=== PATIENT | female | born 1950 | race Caucasian/White ===

== ENCOUNTER 2024-10-17 11:54 | Emergency (ER) | payer OTHER ==
[~2024-10-17] VITALS: Ht 172.7 cm; Wt 99.8 kg
--- NOTE | 2024-10-17 12:35 | ERN ---
General Chief Complaint: Head Injury Stated Complaint: HEAD PAIN DUE TO FALL, BLACK EYE Time Seen by MD: 11:55 Time Seen by Midlevel: 11:55 Source: patient History of Present Illness Initial Comments The patient is a 73-year-old female presenting to the emergency department after sustaining a mechanical ground level fall two days ago. This morning she not iced bruising to her right eye which prompted the ER visit. She states that two days ago she was cooking when she lost her balance and fell onto the right side. She does report hitting her head and is unsure if she lost consciousness. Denies being on any blood thinners. Allergies: Coded Allergies: No Known Allergies (Unverified Allergy, Unknown, 10/17/24) Past Medical History Past Medical History: Anxiety, GERD, High Cholesterol, Other Medical History Other: LYMPHOMA Past Surgical History: BTL ROS Dictation CONSTITUTIONAL: Negative except for HPI HEAD/FACE: Negative except for HPI EENT: Negative except for HPI RESPIRATORY: Negative except for HPI GASTROINTESTINAL/ABDOMINAL: Negative except for HPI GENITOURINARY: Negative except for HPI MUSCULOSKELETAL: Negative except for HPI INTEGUMENTARY: Negative except for HPI NEUROLOGICAL/PSYCH: Negative except for HPI HEMATOLOGIC/LYMPHATIC: Negative except for HPI All Systems Negative, Except as noted above. 13 point review of systems assessed and all negative except for above. Physical Exam Physical Exam Dictation Vital Signs reviewed General Appearance: Alert, oriented x 3, no acute distress, well developed, nourished. Head and Face: Right periorbital bruising, right parietal scalp hematoma Eyes: PERRL, pink conjunctivas, eyelid no trauma, anterior chamber with arcus senilis. Ears: Pinnas intact and no signs of trauma or erythema ear canals clear and no discharge TM no erythema, bruising behind the right ear Nose: No discharge, no bleeding. Oropharynx: Mouth normal, tongue pink, pharynx clear,no erythema, tonsils no exudates, no abscesses noted, mucous membrane moist Neck: Supple, non-tender, no thyromegaly, no masses, no JVD, no bruits Breast:Deferred Chest:No tenderness, no crepitus, no paradoxical movement, no retractions Lungs:Clear, well-ventilated, symmetric, no rales, no wheezing, no rhonchi, no stridor, good breath sounds bilaterally Heart: Regular rate, regular rhythm, no murmur, no gallops Vascular: no peripheral edema, Abdomen: Soft, positive bowel sounds, nondistended, no guarding, nontender, no rebound, no masses no hepatomegaly, no splenomegaly, no Fierro's sign, no hernias. Rectal: Deferred Genital: Deferred Neurological: Normal speech, motor function intact, sensory function intact Musculoskeletal: Neck nontender, full range of motion, back nontender, full range of motion, Extremities: nontender, full range of motion Skin: Color pink, dry, no turgor, no rash, no lacerations, no abrasions, no contusions. Lymphatic: Deferred MDM MDM: Differential diagnosis: There are no social concerns with this patient. Prescription drug management Prescriptions will include: Medical management and examination interpretation discussions were had by me with other qualified healthcare professionals as indicated for the patient's care. ED Course Orders Procedure Category Date Status Time Ct Cervical Spine W/O CT 10/17/24 Resulted Contrast 12:13 Ct Head/Brain W/O CT 10/17/24 Resulted Contrast 12:13 Ct Maxillofacial W/O CT 10/17/24 Resulted Contrast 12:13 Vital Signs Date Time Temp Pulse Resp B/P (MAP) Pulse Ox O2 Delivery O2 Flow Rate FiO2 10/17/24 12:20 98.1 85 16 136/80 98 Room Air* 0 21 10/17/24 12:00 98.2 87 16 138/82 97 Room Air [address] [address] IMAGING REPORT Signed PATIENT: JUSTIN AUGUSTE MR#: [id number] : 1950 SEX: F AGE: 73 LOCATION: [facility] ORDER STATUS: REG [facility] REPORT#: [id number] SERVICE 1213 REASON: FALL, RIGHT PARIETAL SCALP HEMATOMA, RIGHT PERIORBITAL HEMATOMA, ORDERING PHYSICIAN: AMANDA TODD PROCEDURE: HEAD WO - CT HEAD/BRAIN W/O CONTRAST CT HEAD/BRAIN W/O CONTRAST HISTORY: Status post fall COMPARISON: None TECHNIQUE: Multiple sequential axial images of the head were obtained from the base of the skull through vertex. Patient was not given contrast through intravenous route. FINDINGS: There is right posterior scalp soft tissue swelling/soft tissue hematoma. The ventricles and extraventricular CSF spaces are dilated consistent with cerebral atrophy. Nonspecific white matter changes seen. There is no midline shift, mass effect or herniation. No acute intracranial bleed is seen. Visualized portion of the paranasal sinuses are grossly within normal limits. IMPRESSION: 1. No acute intracranial bleed is seen. 2. Atrophy with white matter changes. CT was performed with one or more following dose reduction techniques: automated exposure control, adjustment of the mA and kv according to patient's size, or use of a iterative reconstruction technique. DICTATED BY: OMAYRA MCCONNELL MD DATE: 10/17/241302 ELECTRONICALLY SIGNED BY: OMAYRA MCCONNELL MD DATE: 10/17/[address] [address] IMAGING REPORT Signed PATIENT: JUSTIN AUGUSTE MR#: [id number] : 1950 SEX: F AGE: 73 LOCATION: [facility] ORDER 14 STATUS: [facility] REPORT#: [id number] SERVICE 12 REASON: FALL, RIGHT PARIETAL SCALP HEMATOMA, RIGHT PERIORBITAL HEMATOMA, ORDERING PHYSICIAN: AMANDA TODD PROCEDURE: C SPIN WO - CT CERVICAL SPINE W/O CONTRAST CT CERVICAL SPINE W/O CONTRAST HISTORY: Status post fall COMPARISON: None TECHNIQUE: Multiple sequential axial images of the cervical spine were obtained including post processing sagittal and coronal reconstruction images. Patient was not given contrast through intravenous route. FINDINGS: There are degenerative changes in cervical spine spondylosis. Disc space narrowings are seen at C3-4, C4-5, C5-6 and C6-7 levels. There is reversal of normal lordotic cervical curvature which may be related to muscle spasm or positioning. There is no loss of vertebral height. Evaluation for disc and cord pathology is limited with CT study. No evidence of fracture or dislocation is seen. IMPRESSION: 1. No fracture is seen. CT was performed with one or more following dose reduction techniques: automated exposure control, adjustment of the mA and kv according to patient's size, or use of a iterative reconstruction technique. DICTATED BY: OMAYRA MCCONNELL MD DATE: 03/08/25 1307 ELECTRONICALLY SIGNED BY: OMAYRA MCCONNELL MD DATE: 10/17/24 131 [place] [address] [place] [id number] IMAGING REPORT Signed PATIENT: JUSTIN AUGUSTE MR#: [id number] : 1950 SEX: F AGE: 73 LOCATION: [facility] ORDER 121 STATUS: REG [facility] REPORT#: [id number] SERVICE 12 REASON: FALL, RIGHT PARIETAL SCALP HEMATOMA, RIGHT PERIORBITAL HEMATOMA, ORDERING PHYSICIAN: AMANDA TODD PROCEDURE: MAXFACI WO - CT MAXILLOFACIAL W/O CONTRAST CT MAXILLOFACIAL W/O CONTRAST HISTORY: Status post fall COMPARISON: None TECHNIQUE: Multiple sequential high-resolution axial images of the paranasal sinuses were obtained. Postprocessing sagittal and coronal reconstruction images were also obtained. Patient was not given contrast through intravenous route. FINDINGS: Nasal septum is mildly deviated towards right. There is no evidence of mucoperiosteal thickening involving the paranasal sinuses. The infundibula are patent bilaterally. No acute displaced fracture is seen. There is no evidence of air-fluid level in the paranasal sinuses. Parapharyngeal fat planes are preserved bilaterally. IMPRESSION: 1. No acute displaced fracture is seen. CT was performed with one or more following dose reduction techniques: automated exposure control, adjustment of the mA and kv according to patient's size, or use of a iterative reconstruction technique. DICTATED BY: OMAYRA MCCONNELL MD DATE: 10/17/241310 ELECTRONICALLY SIGNED BY: OMAYRA MCCONNELL MD DATE: 10/17/24 131 DX & DISP Disposition: Discharge Departure Impression: Primary Impression: Hematoma of right parietal scalp Additional Impression: Closed head injury Condition: Stable Additional Instructions: Your CT scan of the head does not show any acute intracranial bleed. Your CT scan of the neck and maxillofacial does not show any acute fracture or dislocation. You may take Tylenol and Motrin as needed for pain. The bruising should go away over the next couple of days. Follow up with your primary care doctor in 2-3 days for repeat evaluation. Return to the ER if you develop any new or worsening symptoms Referrals: NONE (PCP) Time of Disposition: 13:18 I have reviewed the case, and I agree with, Diagnosis and Plan I performed the substantive portion of the visit. I have reviewed and personally made and approve the management plan that is documented in the note by myself or the SANJAY. I acknowledge for responsibility for the patient's management plan. AMANDA TODD Oct 17, 2024 12:35
--- NOTE | 2024-10-17 13:10 | HMCIMG ---
CT HEAD/BRAIN W/O CONTRAST HISTORY: Status post fall COMPARISON: None TECHNIQUE: Multiple sequential axial images of the head were obtained from the base of the skull through vertex. Patient was not given contrast through intravenous route. FINDINGS: There is right posterior scalp soft tissue swelling/soft tissue hematoma. The ventricles and extraventricular CSF spaces are dilated consistent with cerebral atrophy. Nonspecific white matter changes seen. There is no midline shift, mass effect or herniation. No acute intracranial bleed is seen. Visualized portion of the paranasal sinuses are grossly within normal limits. IMPRESSION: 1. No acute intracranial bleed is seen. 2. Atrophy with white matter changes. CT was performed with one or more following dose reduction techniques: automated exposure control, adjustment of the mA and kv according to patient's size, or use of a iterative reconstruction technique.
--- NOTE | 2024-10-17 13:13 | HMCIMG ---
CT CERVICAL SPINE W/O CONTRAST HISTORY: Status post fall COMPARISON: None TECHNIQUE: Multiple sequential axial images of the cervical spine were obtained including post processing sagittal and coronal reconstruction images. Patient was not given contrast through intravenous route. FINDINGS: There are degenerative changes in cervical spine spondylosis. Disc space narrowings are seen at C3-4, C4-5, C5-6 and C6-7 levels. There is reversal of normal lordotic cervical curvature which may be related to muscle spasm or positioning. There is no loss of vertebral height. Evaluation for disc and cord pathology is limited with CT study. No evidence of fracture or dislocation is seen. IMPRESSION: 1. No fracture is seen. CT was performed with one or more following dose reduction techniques: automated exposure control, adjustment of the mA and kv according to patient's size, or use of a iterative reconstruction technique.
--- NOTE | 2024-10-17 13:14 | HMCIMG ---
CT MAXILLOFACIAL W/O CONTRAST HISTORY: Status post fall COMPARISON: None TECHNIQUE: Multiple sequential high-resolution axial images of the paranasal sinuses were obtained. Postprocessing sagittal and coronal reconstruction images were also obtained. Patient was not given contrast through intravenous route. FINDINGS: Nasal septum is mildly deviated towards right. There is no evidence of mucoperiosteal thickening involving the paranasal sinuses. The infundibula are patent bilaterally. No acute displaced fracture is seen. There is no evidence of air-fluid level in the paranasal sinuses. Parapharyngeal fat planes are preserved bilaterally. IMPRESSION: 1. No acute displaced fracture is seen. CT was performed with one or more following dose reduction techniques: automated exposure control, adjustment of the mA and kv according to patient's size, or use of a iterative reconstruction technique.
[2024-10-17 13:21] VITALS: BP 134/75; PULSE 83; RESP 16; TEMP 98.3; O2SAT 98
== END 2024-10-17 13:33 | disposition home or self-care (01) ==
LOC: EDH 11:54
DX: S00.03XA Contusion of scalp, initial encounter (principal); F41.9 Anxiety disorder, unspecified; E78.00 Pure hypercholesterolemia, unspecified; K21.9 Gastro-esophageal reflux disease without esophagitis; Z98.51 Tubal ligation status; W18.39XA Other fall on same level, initial encounter; Y93.89 Activity, other specified; Y92.89 Other specified places as the place of occurrence of the external cause; Y99.8 Other external cause status
CPT/HCPCS: 70450; 70486; 72125; 99284